=== PATIENT | female | born 1990 | race Two or more races ===

== ENCOUNTER 2022-02-17 14:47 | Emergency (ER) | payer BC ==
[~2022-02-17] VITALS: Ht 167.6 cm; Wt 68.0 kg
[2022-02-17] MEDS: IBUPROFEN 600MG TABLET PO NR ×2 (15:15→19:00)
[2022-02-17] MEDS ORDERED: IBUPROFEN 600MG TABLET PO ONE (15:15)
[2022-02-17] MEDS ORDERED: VISCOUS LIDOCAINE 2% 15 ML UDC MM PRN (17:15)
[2022-02-17] MEDS ORDERED: BENZ1LOZ73 MT ×3 (18:30→18:47)
[2022-02-17] MEDS ORDERED: IBUP-2029 MT ×3 (18:30→18:47)
[2022-02-17] MEDS ORDERED: AMOX-494 MT ×3 (18:45→18:47)
[2022-02-17] MEDS ORDERED: DEXAMETHASONE 10 MG/ML VIAL PO ONE (18:45)
[2022-02-17 23:17] VITALS: BP 113/75
== END 2022-02-17 23:17 | disposition home or self-care (01) ==
LOC: ER 14:59
DX: J02.0 Streptococcal pharyngitis (principal); Z20.822 Contact with and (suspected) exposure to COVID-19
CPT/HCPCS: 81025; 87426; 87430; 99284; C9803; J1100